=== PATIENT | male | born 1995 | race American Indian/Alaskan Native ===

== ENCOUNTER 2017-08-02 13:24 | Emergency (ER) | payer OTHER ==
[2017-08-02] MEDS ORDERED: MOTRIN PO ONE (17:08)
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
[2017-08-02] MEDS ORDERED: ULTRAM PO ONE (18:20)
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
[2017-08-02 20:34] VITALS: BP 124/82
== END 2017-08-02 20:30 | disposition home or self-care (01) ==
LOC: ED 13:24
DX: S86.912A Strain of unspecified muscle(s) and tendon(s) at lower leg level, left leg, initial encounter (principal); F12.10 Cannabis abuse, uncomplicated; V87.7XXA Person injured in collision between other specified motor vehicles (traffic), initial encounter; Y93.89 Activity, other specified; Y99.8 Other external cause status; Y92.410 Unspecified street and highway as the place of occurrence of the external cause
CPT/HCPCS: 99283